=== PATIENT | female | born 1975 | race Caucasian/White ===

== ENCOUNTER 2019-04-08 13:01 | Emergency (ER) | payer MEDICARE ==
[2019-04-08] MEDS ORDERED: PROMETHAZINE HCL INJ 25 MG/1 ML VIAL IV ONE (13:29)
--- NOTE | 2019-04-08 13:31 | ER Document Report ---
ED Medical Screen (RME) - General Chief Complaint: Abdominal Pain Stated Complaint: ABDOMINAL PAIN/VOMITING Time Seen by Provider: 04/08/19 13:29 Notes: Patient is a 44-year-old female history of hepatitis B and C presents to the emergency department for nausea, vomiting and right upper abdominal pain. Patient voices she does have a history of a cholecystectomy. States she also has a history of "liver failure." She has a history of angioedema and has been intubated 3 times in the last 3 months. States typically when she has excessive vomiting her airway closes and she needs to be intubated. Patient voices at this time she has no respiratory distress. States she wants to "catch it before it gets bad." GENERAL: Alert, interacts well. No acute distress. ENT: Oral mucosa moist, tongue midline. LUNGS: Clear to auscultation bilaterally, no wheezes, rales, or rhonchi. No respiratory distress. ABDOMEN: Soft, right upper quadrant abdominal pain noted. Non-distended. Bowel sounds present in all 4 quadrants. I have greeted and performed a rapid initial assessment of this patient. A comprehensive ED assessment and evaluation of the patient, analysis of test results and completion of the medical decision making process will be conducted by additional ED providers. I have specifically instructed the patient or family members with the patient to immediately return to any nursing staff should anything change in the patient's condition or with their chief complaint. This medical record was dictated with voice recognizing software. There may be grammatical, syntax errors that are unintended. - Related Data Allergies/Adverse Reactions: ondansetron [From Zofran] Allergy (Verified 04/08/19 13:16) Hives prochlorperazine [From Compazine] Adverse Reaction (Verified 04/08/19 13:16) Lock jaw Past Medical History - Social History Chew tobacco use (# tins/day): No Frequency of alcohol use: None Drug Abuse: None Physical Exam - Vital signs Vitals: Temp Pulse Resp BP Pulse Ox 98.0 F 96 12 140/86 H 97 04/08/19 13:06 04/08/19 13:06 04/08/19 13:06 04/08/19 13:06 04/08/19 13:06 Course - Vital Signs Vital signs: Temp Pulse Resp BP Pulse Ox 98.0 F 96 12 140/86 H 97 04/08/19 13:06 04/08/19 13:06 04/08/19 13:06 04/08/19 13:06 04/08/19 13:06
[2019-04-08] MEDS ORDERED: NORMAL SALINE 1000 ML 1,000 ML IV ONE (14:31)
[2019-04-08] MEDS ORDERED: PROMETHAZINE HCL INJ 25 MG/1 ML VIAL IM ONE (14:32)
--- NOTE | 2019-04-08 14:38 | ER Document Report ---
ED General - General Chief Complaint: Abdominal Pain Stated Complaint: ABDOMINAL PAIN/VOMITING Time Seen by Provider: 04/08/19 13:29 - HPI Notes: Patient is a 44-year-old female who is here from out of town with a history of hepatitis B and C who presents complaining of nausea, vomiting, midepigastric soreness that started 2 days ago. She has a surgical history of cholecystectomy. Patient states that when she has nausea and vomiting that occurs too frequently she does develop angioedema and has been intubated 5 times since spring and over 20 times in her lifetime already. Patient states that she has a very good grasp on when she needs to be intubated at this point. Patient states that she is here trying to catch her symptoms early on to prevent this again. She has been urinating normally and having normal bowel movements. No vaginal bleeding, odor, or discharge. No other concerns or complaints. Denies any headache, fever, head injury, neck pain, changes in vision/speech/mentation/hearing, URI, sore throat, chest pain, palpitations, syncope, cough, shortness of breath, wheeze, dyspnea, diarrhea, urinary re tention, dysuria, hematuria, back pain, or rash. - Related Data Allergies/Adverse Reactions: ondansetron [From Zofran] Allergy (Verified 04/08/19 13:16) Hives prochlorperazine [From Compazine] Adverse Reaction (Verified 04/08/19 13:16) Lock jaw Past Medical History - Social History Smoking Status: Current Every Day Smoker Chew tobacco use (# tins/day): No Frequency of alcohol use: None Drug Abuse: None Family History: Reviewed & Not Pertinent Patient has suicidal ideation: No Patient has homicidal ideation: No Review of Systems - Review of Systems -: Yes All other systems reviewed and negative Physical Exam - Vital signs Vitals: Temp Pulse Resp BP Pulse Ox 98.0 F 96 12 140/86 H 97 04/08/19 13:06 04/08/19 13:06 04/08/19 13:06 04/08/19 13:06 04/08/19 13:06 - Notes Notes: PHYSICAL EXAMINATION: GENERAL: Well-appearing, well-nourished and in no acute distress. HEAD: Atraumatic, normocephalic. EYES: Pupils equal round and reactive to light, extraocular movements intact, sclera anicteric, conjunctiva are normal. ENT: Nares patent and without discharge. oropharynx clear without exudates. No tonsilar hypertrophy or erythema. Moist mucous membranes. No evidence of angioedema. No airway compromise at this time. NECK: Normal range of motion, supple without lymphadenopathy LUNGS: Breath sounds clear to auscultation bilaterally and equal. No wheezes rales or rhonchi. HEART: Regular rate and rhythm without murmurs, rubs, gallops. ABDOMEN: Soft, nondistended abdomen. No guarding, no rebound. Normal bowel sounds present. No CVA tenderness bilaterally. No tenderness to the right upper quadrant. She does have mild tenderness to her midepigastrium. No lower abdominal tenderness. Musculoskeletal: FROM to passive/active. Strength 5+/5. Extremities: No cyanosis, clubbing, or edema b/l. Peripheral pulses 2+. Capillary refill less than 3 seconds. NEUROLOGICAL: Normal speech, normal gait. PSYCH: Normal mood, normal affect. SKIN: Warm, Dry, normal turgor, no rashes or lesions noted. Course - Re-evaluation Re-evalutation: 04/08/19 18:27 Patient is an afebrile, well-hydrated, 44-year-old female who presents with nausea and vomiting, since resolved with mild right upper quadrant pain that is nonspecific. Vitals are acceptable without significant tachycardia, tachypnea, hypoxia. PE is otherwise unremarkable. Patient's abdomen is soft and nontender at this time. She is nontoxic-appearing and is tolerating p.o. without di fficulty. She has not had any episodes of emesis throughout her stay. Labs are unremarkable including ultrasound of the right upper quadrant. No further work- up warranted. Low suspicion/risk for acute appendicitis, bowel obstruction, acute cholecystitis, acute cholangitis, perforated diverticulitis, incarcerated hernia, pancreatitis, perforated ulcer, peritonitis, sepsis, pelvic inflammatory disease, ectopic , tubo-ovarian abscess, ovarian torsion, or other systemic emergent condition at this time. Patient is aware that her condition can change from initial presentation and she needs to monitor symptoms closely and seek medical attention if any acute changes. Conservative measures otherwise for symptoms. Recheck with your PCM in 2-3 days. Consider consult with a corn grinder. Return to the ED with any worsening/concerning symptoms otherwise as reviewed in discharge. Patient is in agreement. - Vital Signs Vital signs: Temp Pulse Resp BP Pulse Ox 98.0 F 96 12 140/86 H 97 04/08/19 13:06 04/08/19 13:06 04/08/19 13:06 04/08/19 13:06 04/08/19 13:06 - Laboratory Result Diagrams: 04/08/19 15:33 04/08/19 15:33 Laboratory results interpreted by me: 04/08/19 04/08/19 04/08/19 15:33 15:33 17:21 Hgb 11.7 L Hct 33.1 L RDW 20.4 H Seg Neutrophils % 41.5 L Chloride 109 H Glucose 118 H Total Bilirubin 2.0 H Direct Bilirubin 1.2 H AST 100 H Albumin 3.3 L Urine Urobilinogen 2.0 H Urine Ascorbic Acid 40 H Discharge - Discharge Clinical Impression: Nausea and vomiting Qualifiers: Vomiting type: unspecified Vomiting Intractability: non-intractable Qualified Code(s): R11.2 - Nausea with vomiting, unspecified Condition: Stable Disposition: HOME, SELF-CARE Instructions: Abdominal Pain ([facility]), Antinausea Medication ([facility]), Vomiting ([facility]) Additional Instructions: Maintain adequate fluid and food intake [place] diet ([employer] Bananas, rice, apples, toast, etc tylenol if needed Monitor for any worsening symptoms Make sure you are staying hydrated enough to urinate and have normal BM's Recheck with your PCM in 2-3 days Consider consult with Gastroenterology for ongoing/worsening symptoms Return to the ED with any worsening symptoms and/or development of fever, headache, chest pain, palpitations, syncope, shortness of breath, trouble breathing, abdominal pain, n/v/d, blood in stool/urine, weakness, or other worsening symptoms that are concerning to you. Prescriptions: Promethazine HCl [Phenergan 25 mg Tablet] 1 tab PO TID #15 tablet Forms: Elevated Blood Pressure, Smoking Cessation Education Referrals: DAVIE SHIRLEY MD [ACTIVE STAFF] - Follow up as needed OTILIO ELIAS MD [ACTIVE STAFF] - Follow up as needed
[2019-04-08] MEDS ORDERED: MORPHINE SULFATE 10 MG/ML INJ IV ONE ×2 (15:10→17:18)
[2019-04-08 15:57] LABS: ABSOLUTE EOSINOPHILS # (AUTO) 0.2 10^3/uL (0.0-0.6); ABSOLUTE MONOCYTES (AUTO) 0.6 10^3/uL (0.1-1.4); BASOPHILS % (AUTO) 0.2 % (0-2); EOSINOPHILS % (AUTO) 3.7 % (0-6); HEMATOCRIT 33.1 % (36.0-47.0); HEMOGLOBIN 11.7 g/dL (12.0-15.5); LYMPHOCYTES % (AUTO) 42.1 % (13-45); MEAN CORPUSCULAR HGB CONC 35.4 g/dL (32.0-36.0); MEAN CORPUSCULAR VOLUME 87 fl (80-97); MONOCYTES % (AUTO) 12.5 % (3-13); PLATELET COUNT 250 10^3/uL (150-450); RED BLOOD COUNT 3.78 10^6/uL (3.72-5.28); RED CELL DISTRIBUTION WIDTH 20.4 % (11.5-14.0); SEGMENTED NEUTROPHILS % (AUTO) 41.5 % (42-78); TOTAL CELLS COUNTED % (AUTO) 100 %; WHITE BLOOD COUNT 4.8 10^3/uL (4.0-10.5)
[2019-04-08 16:18] LABS: ALBUMIN 3.3 g/dL (3.5-5.0); ALKALINE PHOSPHATASE 117 U/L (38-126); ANION GAP 5 (5-19); ASPARTATE AMINO TRANSFERASE 100 U/L (14-36); BILIRUBIN,DIRECT 1.2 mg/dL (0.0-0.4); BLOOD UREA NITROGEN 17 mg/dL (7-20); CALCIUM 8.6 mg/dL (8.4-10.2); CARBON DIOXIDE 26 mmol/L (22-30); CHLORIDE 109 mmol/L (98-107); GLUCOSE 118 mg/dL (75-110); POTASSIUM 4.3 mmol/L (3.6-5.0); TOTAL PROTEIN 7.4 g/dL (6.3-8.2)
--- NOTE | 2019-04-08 16:34 | RADIOLOGY REPORT (SQ) ---
EXAM DESCRIPTION: U/S ABDOMEN LIMITED W/O DOP COMPLETED DATE/TIME: 04/08/2019 4:22 pm REASON FOR STUDY: RUQ pain/HEP C COMPARISON: None. TECHNIQUE: Dynamic and static grayscale images acquired of the abdomen and recorded on PACS. Additio nal selected color Doppler and spectral images recorded. LIMITATIONS: None. FINDINGS: PANCREAS: No masses. Visualized pancreatic duct normal caliber. LIVER: No masses. Echotexture normal. LIVER VASCULATURE: Normal directional flow of the main portal vein and hepatic veins. GALLBLADDER: Surgically absent. ULTRASOUND-DETECTED BAER'S SIGN: Negative. INTRAHEPATIC DUCTS AND COMMON DUCT: Intrahepatic ducts normal caliber. The common bile duct is dilat ed, which is not an unexpected finding given cholecystectomy. No filling defects. INFERIOR VENA CAVA: Normal flow. AORTA: No aneurysm. RIGHT KIDNEY: Normal size. Normal echogenicity. No solid or suspicious masses. No hydronephrosis. No calcifications. PERITONEAL AND RIGHT PLEURAL SPACE: No ascites or effusions. OTHER: No other significant findings. IMPRESSION: Status post cholecystectomy. Otherwise normal sonographic appearance of the right upper quadrant. TECHNICAL DOCUMENTATION: JOB ID: [id number]- All Rights Reserved Reading location - IP/workstation name: [email or web address]
[2019-04-08 17:52] LABS: APPEARANCE,URINE SLIGHTLY-CLOUDY; BILIRUBIN,URINE NEGATIVE (NEGATIVE); COLOR,URINE YELLOW; GLUCOSE, URINE NEGATIVE (NEGATIVE); KETONES,URINE NEGATIVE (NEGATIVE); LEUKOCYTE ESTERASE,URINE NEGATIVE (NEGATIVE); NITRITE,URINE NEGATIVE (NEGATIVE); PROTEIN,URINE NEGATIVE (NEGATIVE); URINE SPECIFIC GRAVITY 1.014
[2019-04-08 18:49] VITALS: BP 135/84
== END 2019-04-08 18:49 | disposition home or self-care (01) ==
LOC: ER 13:01
DX: R11.2 Nausea with vomiting, unspecified (principal); R10.11 Right upper quadrant pain; L73.9 Follicular disorder, unspecified; F17.200 Nicotine dependence, unspecified, uncomplicated; Z90.49 Acquired absence of other specified parts of digestive tract; Z88.8 Allergy status to other drugs, medicaments and biological substances
CPT/HCPCS: 96376; 99284; 96372; 96361; 96374; 36415; 83690; 85025; 81025; 80053; 81001; 76705; J2270; J2550; J7030

== ENCOUNTER 2020-03-27 15:07 | Observation (INO) | payer MEDICARE ==
--- NOTE | 2020-03-27 15:49 | ER Document Report ---
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 Reports that she typically is given IV berinat which helps with her angioedema and swelling symptoms. Has not tried any [id number] medications. Patient reports she has been intubated 27 times due to her angioedema. States she did have a complete hysterectomy done years ago. Denies any fevers or chills. Patient states that she traveled with her , does not have a set primary care provider. Denies any chest pain, shortness of breath. Does report some nausea denies any vomiting or diarrhea. I have greeted and performed a rapid initial assessment of this patient. A comprehensive ED assessment and evaluation of the patient, analysis of test results and completion of the medical decision making process will be conducted by additional ED providers. PHYSICAL EXAMINATION: GENERAL: Well-appearing, well-nourished and in no acute distress. HEAD: Atraumatic, normocephalic. ENT: Uvula midline, tongue midline, no drooling or trismus. Speech clear. No difficulty handling secretions NECK: Normal range of motion CV: s1, s2 regular LUNGS: No respiratory distress Musculoskeletal: Normal range of motion NEUROLOGICAL: Normal speech, normal gait. Dr. Campbell made aware at 1540 of IV medication to be sent down from pharmacy. 03/27/20 15:49 03/27/20 15:51 - Related Data Allergies/Adverse Reactions: ondansetron [From Zofran] Allergy (Verified 04/08/19 13:16) Hives prochlorperazine [From Compazine] Adverse Reaction (Verified 04/08/19 13:16) Lock jaw Past Medical History - Social History Drug Abuse: Marijuana Physical Exam - Vital signs Vitals: Temp Pulse Resp BP Pulse Ox 98.7 F 88 18 134/81 H 100 03/27/20 15:14 03/27/20 15:14 03/27/20 15:14 03/27/20 15:14 03/27/20 15:14 Course - Vital Signs Vital signs: Temp Pulse Resp BP Pulse Ox 98.7 F 88 18 134/81 H 100 03/27/20 15:14 03/27/20 15:14 03/27/20 15:14 03/27/20 15:14 03/27/20 15:14
--- NOTE | 2020-03-27 15:49 | ER Document Report ---
ED General - General Chief Complaint: Breathing Difficulty Stated Complaint: THROAT SWELLING,CHEST TIGHT Time Seen by Provider: 03/27/20 15:28 Mode of Arrival: Ambulatory Information source: Patient Notes: Patient is a 45-year-old female presenting to the emergency department chief complaint of shortness of breath and the sensation of her throat closing. Patient states that she has hereditary angioedema has been intubated more than 20 times because of this. Patient states that when she has difficulties TRAVEL OUTSIDE OF THE [place] IN LAST 30 DAYS: No - HPI Onset: This morning Onset/Duration: Persistent, Worse Quality of pain: No pain Severity: None Pain Level: Denies Associated symptoms: Nausea Exacerbated by: Denies Relieved by: Denies Similar symptoms previously: Yes Recently seen / treated by doctor: No - Related Data Allergies/Adverse Reactions: ondansetron [From Zofran] Allergy (Verified 04/08/19 13:16) Hives prochlorperazine [From Compazine] Adverse Reaction (Verified 04/08/19 13:16) Lock jaw Past Medical History - General Information source: Patient - Social History Smoking Status: Current Every Day Smoker Cigarette use (# per day): Yes Chew tobacco use (# tins/day): No Smoking Education Provided: Yes Frequency of alcohol use: Rare Drug Abuse: Marijuana Lives with: Spouse/Significant other Family History: Reviewed & Not Pertinent Patient has suicidal ideation: No Patient has homicidal ideation: No Endocrine Medical History: Reports: Other - Hereditary Angioedema Review of Systems - Review of Systems Notes: REVIEW OF SYSTEMS: CONSTITUTIONAL : Denies fever, chills, or sweats. Denies recent illness. EENT: Per HPI CARDIOVASCULAR: Denies chest pain. RESPIRATORY: Denies cough, cold, or chest congestion. Denies shortness of breath, difficulty breathing, or wheezing. GASTROINTESTINAL: Per HPI GENITOURINARY: Denies difficulty urinating, painful urination, burning, frequency, or blood in urine. MUSCULOSKELETAL: Denies neck or back pain or joint pain or swelling. SKIN: Denies rash or skin lesions. HEMATOLOGIC : Denies easy bruising or bleeding. NEUROLOGICAL: Denies altered mental status or loss of consciousness. Denies headache. Denies weakness or paralysis or loss of use of either side. Denies problems with gait or speech. Denies sensory or motor loss. PSYCHIATRIC: Denies suicidal or homicidal ideations 10 Systems are negative unless otherwise specified above Physical Exam - Vital signs Vitals: Temp Pulse Resp BP Pulse Ox 98.7 F 88 18 134/81 H 100 03/27/20 15:14 03/27/20 15:14 03/27/20 15:14 03/27/20 15:14 03/27/20 15:14 - Notes Notes: PHYSICAL EXAMINATION: GENERAL: Patient is a 45-year-old female presenting to the emergency department chief complaint of nausea and a sensation of throat swelling. HEAD: Atraumatic, normocephalic. EYES: Pupils equal round and reactive to light, extraocular movements intact, sclera anicteric, conjunctiva are normal. ENT: nares patent, oropharynx clear without exudates. Moist mucous membranes. Patient has had prior uvulectomy but otherwise normal visualization of the posterior pharynx NECK: Normal range of motion, supple without lymphadenopathy, no appreciable JVD LUNGS: Lungs clear to auscultation bilaterally and equal. No wheezes rales or rhonchi. HEART: Regular rate and rhythm without murmurs ABDOMEN: Soft, nontender, normal bowel sounds. No guarding, no rebound. No masses appreciated. EXTREMITIES: Active full range of motion, no pitting or edema. No cyanosis. 2+ pulses x4 NEUROLOGICAL: No focal neurological deficits. Moves all extremities spontaneo usly and on command. Patient appears anxious SKIN: Warm, Dry, and intact. Normal turgor, no rashes or lesions noted. Course - Re-evaluation Re-evalutation: 03/27/20 19:16 Patient has been maintained on a groundskeeping maintenance worker while present. When the patient arrived she told us the medication that she normally receives for her hereditary angioedema. The pharmacy was called and they sent us the appropriate dose of Berinert. On reevaluation patient states that her throat does not feel completely resolved and she is concerned for possible rebound and is requesting admission. 192 I was able to speak to the nighttime hospitalist explained the patient's condition and her concern for possible rebound. He is agreeable with evaluation and admission. Patient has no complaints at this time. - Vital Signs Vital signs: Temp Pulse Resp BP Pulse Ox 98.7 F 88 16 108/63 96 03/27/20 15:14 03/27/20 15:14 03/27/20 18:01 03/27/20 18:00 03/27/20 18:01 - Laboratory Result Diagrams: 03/27/20 16:24 03/27/20 16:24 Laboratory results interpreted by me: 03/27/20 03/27/20 16:24 16:24 RDW 15.4 H Lymph % (Auto) 45.7 H BUN 21 H Glucose 144 H AST 63 H ALT 62 H Alkaline Phosphatase 144 H Discharge - Discharge Clinical Impression: Hereditary angioedema, Throat swelling, Nausea Condition: Stable Disposition: ADMITTED OBSERVATION Admitting Provider: Mary Louinrandal Unit Admitted: Medical Floor
[2020-03-27] MEDS ORDERED: DISPOSABLE IV PRN (16:36)
[2020-03-27] MEDS ORDERED: C1 ESTERASE INHIBITOR IV PRN (16:36)
[2020-03-27 17:12] LABS: ABSOLUTE EOSINOPHILS # (AUTO) 0.1 10^3/uL (0.0-0.6); ABSOLUTE LYMPHOCYTES (AUTO) 3.4 10^3/uL (0.5-4.7); ABSOLUTE MONOCYTES (AUTO) 0.6 10^3/uL (0.1-1.4); ABSOLUTE NEUT (AUTO) 3.3 10^3/uL (1.7-8.2); BASOPHILS % (AUTO) 0.5 % (0-2); EOSINOPHILS % (AUTO) 1.4 % (0-6); HEMATOCRIT 40.4 % (36.0-47.0); HEMOGLOBIN 13.9 g/dL (12.0-15.5); LYMPHOCYTES % (AUTO) 45.7 % (13-45); MEAN CORPUSCULAR HEMOGLOBIN 29.8 pg (27.0-33.4); MEAN CORPUSCULAR HGB CONC 34.3 g/dL (32.0-36.0); MEAN CORPUSCULAR VOLUME 87 fl (80-97); MONOCYTES % (AUTO) 8.2 % (3-13); PLATELET COUNT 170 10^3/uL (150-450); RED BLOOD COUNT 4.65 10^6/uL (3.72-5.28); RED CELL DISTRIBUTION WIDTH 15.4 % (11.5-14.0); SEGMENTED NEUTROPHILS % (AUTO) 44.2 % (42-78); TOTAL CELLS COUNTED % (AUTO) 100 %; WHITE BLOOD COUNT 7.4 10^3/uL (4.0-10.5)
[2020-03-27] MEDS ORDERED: PROMETHAZINE HCL INJ 25 MG/1 ML VIAL IV ONE (17:18)
--- NOTE | 2020-03-27 17:23 | RADIOLOGY REPORT (SQ) ---
EXAM DESCRIPTION: CHEST 2 VIEWS IMAGES COMPLETED DATE/TIME: 03/27/2020 3:46 pm REASON FOR STUDY: hereditary angioedema COMPARISON: None. EXAM PARAMETERS: NUMBER OF VIEWS: two views TECHNIQUE: Digital Frontal and Lateral radiographic views of the chest acquired. RADIATION DOSE: NA LIMITATIONS: none FINDINGS: LUNGS AND PLEURA: Slight blunting of the left costophrenic angle may represent small pleu ral effusion. No acute pulmonary consolidation. No pneumothorax. MEDIASTINUM AND HILAR STRUCTURES: No masses or contour abnormalities. HEART AND VASCULAR STRUCTURES: Heart normal size. No evidence for failure. BONES: No acute findings. HARDWARE: Vascular stent suggested in the region of the superior vena cava. OTHER: No other significant finding. IMPRESSION: 1. Slight blunting of the left costophrenic angle may represent small left pleural effu frantz. No acute pulmonary consolidation. TECHNICAL DOCUMENTATION: JOB ID: [id number] 2010 [employer]- All Rights Reserved Reading location - IP/workstation name: [email or web address]
--- NOTE | 2020-03-27 17:32 | RADIOLOGY REPORT (SQ) ---
EXAM DESCRIPTION: KUB/ABDOMEN (SINGLE VIEW) IMAGES COMPLETED DATE/TIME: 03/27/2020 3:46 pm REASON FOR STUDY: hereditary angioedema COMPARISON: None. NUMBER OF VIEWS: One view. TECHNIQUE: Supine radiographic image of the abdomen acquired. LIMITATIONS: None. FINDINGS: BOWEL GAS PATTERN: Normal bowel gas pattern. No dilated loops. Constipation moderate josette re to marked. CALCIFICATIONS: No suspicious calcifications. SOFT TISSUES: No gross mass or suggestion of organomegaly. HARDWARE: None in the abdomen. BONES: No acute fracture. No worrisome bone lesions. OTHER: No other significant finding. IMPRESSION: 1. NO RADIOGRAPHIC EVIDENCE FOR ACUTE ABDOMINAL DISEASE. Constipation moderate severe t o marked. TECHNICAL DOCUMENTATION: JOB ID: [id number] 2010 [employer]- All Rights Reserved Reading location - IP/workstation name: [email or web address]
[2020-03-27 17:34] LABS: ALBUMIN 4.4 g/dL (3.5-5.0); ALKALINE PHOSPHATASE 144 U/L (38-126); ANION GAP 9 (5-19); ASPARTATE AMINO TRANSFERASE 63 U/L (14-36); BILIRUBIN,DIRECT 0.1 mg/dL (0.0-0.4); BILIRUBIN,TOTAL 0.4 mg/dL (0.2-1.3); BLOOD UREA NITROGEN 21 mg/dL (7-20); CARBON DIOXIDE 29 mmol/L (22-30); CHLORIDE 101 mmol/L (98-107); GLUCOSE 144 mg/dL (75-110); POTASSIUM 4.5 mmol/L (3.6-5.0); TOTAL PROTEIN 7.9 g/dL (6.3-8.2)
[2020-03-27] MEDS ORDERED: PROMETHAZINE HCL INJ 25 MG/1 ML VIAL IV PRN (20:15)
[2020-03-27] MEDS ORDERED: ACETAMINOPHEN 325 MG TABLET PO PRN (20:15)
--- NOTE | 2020-03-27 20:24 | PDOC H&P ---
History of Present Illness Patient complains of: Throat swelling, abdominal pain History of Present Illness: ADONIS TRUJILLO is a 45 year old female with a history of hereditary angioedema who presents with 1 day duration of tetanus around her throat which she reports a sense of swelling. She also reports a cramping abdominal pain which is 7/10 intensity, intermittent, nonradiating with no aggravating or relieving factor noted. She also states that she has swelling on her hands and elbow area. She gets a flareup about every 4 to 6 weeks and she states that most of her symptoms are usually GI. She states that she has been intubated multiple times in the past due to upper airway obstruction from angioedema in the last incident was in June 2019. Currently she denies any difficulty of swallowing or breathing. She also denies nausea, vomiting, chest pain, diarrhea or any urinary habit changes. In the ED patient was given Berinert few hours back and she is still feels tightness around hair neck area. She states that he usually takes her 1 to 3 days to respond following administration of the medication. Past Medical History Endocrine Medical History: Reports: Other - Hereditary Angioedema Past Surgical History Past Surgical History: Reports: Cholecystectomy, Hysterectomy Social History Information Source: Patient Lives with: Family, Spouse/Significant other Smoking Status: Current Every Day Smoker Hx Recreational Drug Use: No Drugs: None - Advance Directive Resuscitation Status: Full Code Family History Family History: Reviewed & Not Pertinent Parental Family History Reviewed: Yes Children Family History Reviewed: Yes Sibling(s) Family History Reviewed.: Yes Medication/Allergy Home Medications: Pantoprazole Sodium [Protonix [address] Tablet] 40 mg PO DAILY 03/27/20 Sucralfate [Carafate 1 gm Tablet] 1 gm PO QID 03/27/20 Allergies/Adverse Reactions: ondansetron [From Zofran] Allergy (Verified 04/08/19 13:16) Hives prochlorperazine [From Compazine] Adverse Reaction (Verified 04/08/19 13:16) Lock jaw Review of Systems Constitutional: ABSENT: chills, fever(s), headache(s), weight gain, weight loss Eyes: ABSENT: visual disturbances Ears: ABSENT: hearing changes Nose, Mouth, and Throat: PRESENT: as per HPI Cardiovascular: ABSENT: chest pain, dyspnea on exertion, edema, orthropnea, palpitations Respiratory: ABSENT: cough, hemoptysis Gastrointestinal: PRESENT: as per HPI Genitourinary: ABSENT: dysuria, hematuria Musculoskeletal: ABSENT: back pain, deformity, muscle weakness Integumentary: ABSENT: rash, wounds Neurological: ABSENT: abnormal gait, abnormal speech, confusion, dizziness, focal weakness, syncope Psychiatric: ABSENT: anxiety, depression, homidical ideation, suicidal ideation Endocrine: ABSENT: cold intolerance, heat intolerance, polydipsia, polyuria Hematologic/Lymphatic: ABSENT: easy bleeding, easy bruising Physical Exam Vital Signs: Temp Pulse Resp BP Pulse Ox 98.7 F 88 16 109/71 97 03/27/20 15:14 03/27/20 15:14 03/27/20 19:01 03/27/20 19:00 03/27/20 19:01 Intake & Output 03/26/20 03/27/20 03/28/20 06:59 06:59 06:59 Weight 81.3 kg Additional comments: GENERAL APPEARANCE: Alert and oriented x3, in no acute distress HEENT: Normocephalic and atraumatic. No scleral icterus. Moist oral mucosa. No tongue or pharyngeal swelling noted NECK: Supple. No lymphadenopathy or tenderness. No carotid bruit. No JVD CHEST: Symmetric. Nontender to palpation. LUNGS: Clear with good air entry bilaterally. No wheezing, stridor or crackles HEART: Regular rate and rhythm with normal S1 and S2. No murmurs, gallops, or ru bs. ABDOMEN: Flat, soft, active bowel sounds, no direct or rebound tenderness. No organomegaly detected. No CVA tenderness EXTREMITIES: No cyanosis, clubbing, or edema. MUSCULOSKELETAL: No deformity, atrophy or swelling noted PSYCHIATRIC: Recent and remote memory is intact. Appropriate mood and affect. SKIN: Warm, dry, and well perfused. No lesions or rashes are noted. NEUROLOGIC: No focal sensory or motor deficits are noted. Results Laboratory Results: 03/27/20 16:24 03/27/20 16:24 03/27/20 03/27/20 03/27/20 16:24 16:24 16:24 WBC 7.4 RBC 4.65 Hgb 13.9 Hct 40.4 MCV 87 MCH 29.8 MCHC 34.3 RDW 15.4 H Plt Count 170 Seg Neutrophils % 44.2 Sodium 138.7 Potassium 4.5 Chloride 101 Carbon Dioxide 29 Anion Gap 9 BUN 21 H Creatinine 0.66 Est GFR ( Amer) > 60 Glucose 144 H Calcium 10.0 Total Bilirubin 0.4 AST 63 H Alkaline Phosphatase 144 H Total Protein 7.9 Albumin 4.4 Lipase 241.5 Blood Type A POSITIVE Antibody Screen NEGATIVE 03/27/20 16:24 Troponin I < 0.012 Impressions: Chest X-Ray 03/27/20 15:34 IMPRESSION: 1. Slight blunting of the left costophrenic angle may represent small left pleural effusion. No acute pulmonary consolidation. KUB X-Ray 03/27/20 15:34 IMPRESSION: 1. NO RADIOGRAPHIC EVIDENCE FOR ACUTE ABDOMINAL DISEASE. Constipation moderate severe to marked. Assessment and Plan - Diagnosis (1) Hereditary angioedema Is this a current diagnosis for this admission?: Yes Plan: Patient presents with throat and neck tightness Also has cutaneous and GI symptoms Patient was given Berinert at the ED Now admitted for closer monitoring of her airway Continue monitoring her on continuous pulse oximetry Watch for any difficulty of breathing or swallowing Avoid ENRICO inhibitors Continue supportive care (2) Nausea Is this a current diagnosis for this admission?: Yes Plan: Likely due to hereditary angioedema flareup Promethazine as needed for nausea and vomiting (3) Overweight (BMI 25.0-29.9) Is this a current diagnosis for this admission?: Yes Plan: Encourage lifestyle modification including dietary change and exercise - Time Time Spent with patient: 35 or more minutes Total Critical Time (Minutes): 35 Smoking Cessation Education: 3 to 10 minutes Medications reviewed and adjusted accordingly: Yes Anticipated Discharge Disposition: Home, Self Care Anticipated Discharge Timeframe: within 48 hours - Inpatient Certification Based on my medical assessment, after consideration of the patient's comorbidities, presenting symptoms, or acuity I expect that the services needed warrant INPATIENT care.: Yes I certify that my determination is in accordance with my understanding of Medicare's requirements for reasonable and necessary INPATIENT services [42 CFR 412.3e].: Yes Medical Necessity: Need Close Monitoring Due to Risk of Patient Decompensation, Need For Continuous Telemetry Monitoring, Risk of Complication if Not Cared For in Hospital Post Hospital Care: D/C or Transfer Summary
[2020-03-27] MEDS: FAMOTIDINE 20 MG TABLET PO SCH (23:11)
--- NOTE | 2020-03-27 23:49 | EKG REPORT ---
SEVERITY:- NORMAL ECG - SINUS RHYTHM : Confirmed by: Sandy Ivory MD 27-Mar-2020 23:48:43
[2020-03-28] MEDS ORDERED: ENOXAPARIN SODIUM INJ 40 MG/0.4 ML DISP.SYRIN SUBCUT SCH (10:00)
[2020-03-28] MEDS: FAMOTIDINE 20 MG TABLET PO SCH (10:49)
[2020-03-28] MEDS ORDERED: INFLUENZA QUAD (6MOS+) 2020-21 VAC 0.5 ML SYR IM ONE (12:00)
[2020-03-28 13:02] VITALS: BP 132/84
--- NOTE | 2020-03-28 13:38 | PDOC DISCHARGE SUMMARY ---
Impression - Admit/DC Date/PCP Admission Date/Primary Care Provider: 03/27/20 20:31 Discharge Date: 03/28/20 - Discharge Diagnosis (1) Hereditary angioedema Is this a current diagnosis for this admission?: Yes (2) Nausea Is this a current diagnosis for this admission?: Yes (3) Overweight (BMI 25.0-29.9) Is this a current diagnosis for this admission?: Yes - Additional Information Resuscitation Status: Full Code Discharge Diet: As Tolerated Discharge Activity: Activity As Tolerated Referrals: OUT OF TOWN,PCP [Other] Prescriptions: Hydrocodone/Acetaminophen [[place] 5-325 mg Tablet] 1 tab PO Q6 PRN #10 tablet PRN Reason: Home Medications: Pantoprazole Sodium [Protonix [address] Tablet] 40 mg PO DAILY 03/27/20 Sucralfate [Carafate 1 gm Tablet] 1 gm PO QID 03/27/20 Hydrocodone/Acetaminophen [[place] 5-325 mg Tablet] 1 tab PO Q6 PRN #10 tablet 03/28/20 History of Present Illiness History of Present Illness: As per admitting HPI by Dr. Reed on 03/27/2020 "ADONIS TRUJILLO is a 45 year old female with a history of hereditary angioedema who presents with 1 day duration of tetanus around her throat which she reports a sense of swelling. She also reports a cramping abdominal pain which is 7/10 intensity, intermittent, nonradiating with no aggravating or relieving factor noted. She also states that she has swelling on her hands and elbow area. She gets a flareup about every 4 to 6 weeks and she states that most of her symptoms are usually GI. She states that she has been intubated multiple times in the past due to upper airway obstruction from angioedema in the last incident was in June 2019. Currently she denies any difficulty of swallowing or breathing. She also denies nausea, vomiting, chest pain, diarrhea or any urinary habit changes. In the ED patient was given Berinert few hours back and she is still feels tightness around hair neck area. She states that he usually takes her 1 to 3 days to respond following administration of the medication." Hospital Course Hospital Course: (1) Hereditary angioedema Long standing hx hereditary angioedema with need for intubation on several occasions. Treated with C1 Esterase Inhibitor (Berinert) with significant improvement in symptoms. Respiratory rate WNL, O2 sat 99% on room air. Denies SOB, difficulty breathing, difficulty swallowing. Airway patent, without concerns for need for intubation. Additionally has cutaneous and GI symptoms including nausea and abd pain. Provided medication for pain. Discussed need for seeking further medical attention including swelling tongue/mouth/neck, difficulty breathing, shortness of breath, inability to swallow, closing of airway. she is understanding of this. (2) Nausea Likely due to hereditary angioedema flareup She may take promethazine at home as needed for N/V. (3) Overweight (BMI 25.0-29.9) Encourage lifestyle modification including dietary change and exercise Physical Exam Vital Signs: Temp Pulse Resp BP Pulse Ox 97.9 F 65 16 132/84 H 99 03/28/20 11:59 03/28/20 11:59 03/28/20 11:53 03/28/20 11:59 03/28/20 11:59 Intake & Output 03/27/20 03/28/20 03/29/20 06:59 06:59 06:59 Intake Total 260 580 Balance 260 580 Weight 78.8 kg 78.2 kg General appearance: PRESENT: no acute distress, cooperative Head exam: PRESENT: atraumatic, normocephalic Eye exam: PRESENT: EOMI. ABSENT: scleral icterus Mouth exam: PRESENT: moist, tongue midline, other - No tongue or pharyngeal swelling noted. Airway is patent. Neck exam: PRESENT: full ROM. ABSENT: carotid bruit, JVD, lymphadenopathy, tenderness Respiratory exam: PRESENT: clear to auscultation ishaan, symmetrical, unlabored. ABSENT: accessory muscle use, crackles, rales, tachypnea, wheezes Cardiovascular exam: PRESENT: RRR, +S1, +S2. ABSENT: diastolic murmur, systolic murmur, tachycardia Pulses: PRESENT: normal radial pulses GI/Abdominal exam: PRESENT: normal bowel sounds, soft, tenderness - Left upper quadrant. ABSENT: firm, guarding, organolmegaly, rebound Extremities exam: PRESENT: full ROM. ABSENT: pedal edema, tenderness Musculoskeletal exam: PRESENT: ambulatory, full ROM. ABSENT: deformity, dislocation Neurological exam: PRESENT: alert, awake, oriented to person, oriented to place, oriented to time, oriented to situation Psychiatric exam: PRESENT: appropriate affect, normal mood Skin exam: PRESENT: dry, intact, warm Results Laboratory Results: WBC 7.4 10^3/uL (4.0-10.5) 03/27/20 16:24 RBC 4.65 10^6/uL (3.72-5.28) 03/27/20 16:24 Hgb 13.9 g/dL (12.0-15.5) 03/27/20 16:24 Hct 40.4 % (36.0-47.0) 03/27/20 16:24 MCV 87 fl (80-97) 03/27/20 16:24 MCH 29.8 pg (27.0-33.4) 03/27/20 16:24 MCHC 34.3 g/dL (32.0-36.0) 03/27/20 16:24 RDW 15.4 % (11.5-14.0) H 03/27/20 16:24 Plt Count 170 10^3/uL (150-450) 03/27/20 16:24 Lymph % (Auto) 45.7 % (13-45) H 03/27/20 16:24 [place] % (Auto) 8.2 % (3-13) 03/27/20 16:24 Eos % (Auto) 1.4 % (0-6) 03/27/20 16:24 Baso % (Auto) 0.5 % (0-2) 03/27/20 16:24 Absolute Neuts (auto) 3.3 10^3/uL (1.7-8.2) 03/27/20 16:24 Absolute Lymphs (auto) 3.4 10^3/uL (0.5-4.7) 03/27/20 16:24 Absolute Monos (auto) 0.6 10^3/uL (0.1-1.4) 03/27/20 16:24 Absolute Eos (auto) 0.1 10^3/uL (0.0-0.6) 03/27/20 16:24 Absolute Basos (auto) 0.0 10^3/uL (0.0-0.2) 03/27/20 16:24 Seg Neutrophils % 44.2 % (42-78) 03/27/20 16:24 Sodium 138.7 mmol/L (137-145) 03/27/20 16:24 Potassium 4.5 mmol/L (3.6-5.0) 03/27/20 16:24 Chloride 101 mmol/L (98-107) 03/27/20 16:24 Carbon Dioxide 29 mmol/L (22-30) 03/27/20 16:24 Anion Gap 9 (5-19) 03/27/20 16:24 BUN 21 mg/dL (7-20) H 03/27/20 16:24 Creatinine 0.66 mg/dL (0.52-1.25) 03/27/20 16:24 Est GFR ( Amer) > 60 (>60) 03/27/20 16:24 Est GFR (MDRD) Non-Af > 60 (>60) 03/27/20 16:24 Glucose 144 mg/dL (75-110) H 03/27/20 16:24 Calcium 10.0 mg/dL (8.4-10.2) 03/27/20 16:24 Total Bilirubin 0.4 mg/dL (0.2-1.3) 03/27/20 16:24 Direct Bilirubin 0.1 mg/dL (0.0-0.4) 03/27/20 16:24 Neonat Total Bilirubin Not Reportable 03/27/20 16:24 Neonat Direct Bilirubin Not Reportable 03/27/20 16:24 Neonat Indirect Bili Not Reportable 03/27/20 16:24 AST 63 U/L (14-36) H 03/27/20 16:24 ALT 62 U/L (<35) H 03/27/20 16:24 Alkaline Phosphatase 144 U/L (38-126) H 03/27/20 16:24 Troponin I < 0.012 ng/mL 03/27/20 16:24 Total Protein 7.9 g/dL (6.3-8.2) 03/27/20 16:24 Albumin 4.4 g/dL (3.5-5.0) 03/27/20 16:24 Lipase 241.5 U/L (23-300) 03/27/20 16:24 Blood Type A POSITIVE 03/27/20 16:24 Antibody Screen NEGATIVE 03/27/20 16:24 03/27/20 16:24 Troponin I < 0.012 Impressions: Chest X-Ray 03/27/20 15:34 IMPRESSION: 1. Slight blunting of the left costophrenic angle may represent small left pleural effusion. No acute pulmonary consolidation. KUB X-Ray 03/27/20 15:34 IMPRESSION: 1. NO RADIOGRAPHIC EVIDENCE FOR ACUTE ABDOMINAL DISEASE. Constipation moderate severe to marked. Plan Health Concerns: Hx hereditary angioedema with needs for intubation in the past Plan of Treatment: Hereditary angioedema: No further attention needed at this time. [place] for pain. Goals: Appropriate management of acute attack in order to prevent need for intubation. Time Spent: Greater than 30 Minutes Stroke Is this a Stroke Patient?: No Acute Heart Failure Is this a Heart Failure Patient?: No
[2020-03-29] MEDS ORDERED: INFLUENZA QUAD (6MOS+) 2020-21 VAC 0.5 ML SYR IM ONE (08:00)
== END 2020-03-28 12:43 | disposition home or self-care (01) ==
LOC: ER 15:07 → EH 20:31 → 4S 03-28 00:02
PROVIDERS: ADMIT Student in an Organized Health Care Education/Training Program; ATTEND Physician Assistant
DX: D84.1 Defects in the complement system (principal); R22.1 Localized swelling, mass and lump, neck; R11.0 Nausea; K59.00 Constipation, unspecified; R10.9 Unspecified abdominal pain; R06.02 Shortness of breath; Z23 Encounter for immunization; Z79.899 Other long term (current) drug therapy; Z88.8 Allergy status to other drugs, medicaments and biological substances; F17.210 Nicotine dependence, cigarettes, uncomplicated
CPT/HCPCS: 93005; 99285; 96374; 96375; 86900; 86901; 36415; 86850; 83690; 85025; 80053; 84484; 71046; 74018; 90686; 93010; G0378 ×3; G0008; A9270 ×2; J2550; J3490; J0597; 90471